=== PATIENT | female | born 1990 | race Caucasian/White ===

== ENCOUNTER 2024-01-03 10:32 | Emergency (ER) | payer BC, SELFPAY ==
[2024-01-03 10:38] VITALS: BP 138/99
--- NOTE | 2024-01-03 11:57 | ED.GENMED ---
History of Present Illness
General
Chief Complaint: Weakness
Source: patient
Exam Limitations: none
Time Seen by Provider: 01/03/24 10:48
Nursing documentation reviewed up to this point in time: agreed with
History of Present Illness
History of Present Illness:
The patient is a 33-year-old female who reports that she has had years of intermittent joint pain, joint swelling, and back pain and has had tests done that are consistent with a diagnosis of Breonna's and lupus. However, she reports that she
does not have a definite autoimmune diagnosis. Additionally, patient reports that she suffers from episodes of hypoglycemia after eating. She reports she has a glucometer and at times her blood sugar is in the 50s. Patient reports that over the
last few weeks her symptoms seem to have gotten worse and now include a feeling of ' brain fog' and dizziness. Patient reports that she feels ' out of it', like something is going on and is not right. She denies fever, cough, shortness of breath,
vomiting, and diarrhea. She describes the dizziness as severe lightheadedness as if she is seeing stars. She reports at times he gets so bad that she is unable to work or take care of her kids. She also reports intermittent headaches and
currently has a headache that is moderate and left-sided. She states both her mother and grandmother have lupus. She denies rash. She reports that her right hand was very swollen yesterday but is now much better.
Past History
Past History
ED Past Medical History: Asthma (Sports Induced), Seizures, Hypothyroidism and Other (Episodes of vasovagal syncope in the past, blood markers of lupus)
ED Past Surgical History: Appendectomy
Social History
Tobacco: Former smoker
Alcohol: Occasional
Drug: None
Personal:
Living: with family
Employment: Employed
Family History
Family History: Other (Noncontributory)
Review of Systems
Review of Systems
Allergies reviewed?: Yes
All Other Systems: ROS reviewed and negative except as documented in HPI and ROS
Constitutional: Reports fatigue
EENT: Reports no symptoms
Respiratory: Reports no symptoms
Cardiac: Reports no symptoms
ABD/GI: Reports no symptoms
: Reports no symptoms
Musculoskeletal: Reports joint pain, joint swelling, muscle stiffness and back pain
Skin: Reports no symptoms
Neurological: Reports dizzy, headache and other (Feelings of brain fog or confusion)
Endocrine: Reports other (Low blood sugar at times)
Hematologic/Lymphatic: Reports no symptoms
Psychiatric: Reports no symptoms
Phy Exam
Physical Exam
Physical Exam:
Physical Exam
General: no apparent distress, not acutely ill
Neck: supple. no meningeal signs. normal psoterior pharynx
Heart: s1/s2 regular rate and rhythm, no murmur. equal radial pulses.
Lungs: no acute respiratory distress. clear bilaterally
Abdomen: normal bowel sounds. not tender. no CVAT
Neuro: alert and oriented. no focal neurological deficits
Skin: no rash
Psychiatric: well kept. interactive and cooperative
Extremities: no edema. no calf tenderness. negative homans. good distal pulses. No current erythema, warmth or swelling of joints of hands or feet. No swelling or warmth or erythema of bilateral knees
Course
Orders/Labs/Results
Orders:
Orders
01/03/24 11:38
C-Reactive Protein Urgent
Comment: ADD ON
Complete Blood Count/With Diff Urgent
Comprehensive Metabolic Panel Urgent
Erythrocyte Sed Rate Urgent
Comment: ADD ON
HCG, Serum Qualitative Screen Urgent
Comment: ADD ON
Lyme Progressive Urgent
Comment: ADD ON
Monotest Urgent
Comment: ADD ON
TSH Urgent
Comment: ADD ON
01/03/24 11:50
Add On- LAB Urgent
Tests Added?: TSH, ESR, CRP
01/03/24 11:51
Add On- LAB Urgent
Tests Added?: lymes progressive
Add On- LAB Urgent
Tests Added?: monotest
01/03/24 11:52
Electrocardiogram (*1) Urgent
Reason for Study: Vertigo / Dizzy
EKG- Treatment ONCE
01/03/24 11:53
CT Head W/o Iv Contrast Urgent
Comment:
Reason For Exam: headache
Orthostatic VS- Treatment ONCE
01/03/24 11:54
Add On- LAB Urgent
Tests Added?: beta-HCG qualitative
Ketorolac [Toradol] 30 mg IV NOW STA
01/03/24 13:30
Butalb/Acetaminophen/Caffeine [Fioricet] 1 tab PO NOW STA
Abnormal Lab Results
01/03/24
11:38
Neutrophils % 75.5 H %
(42.2-75.2)
Lymphocytes % 17.9 L %
(20.5-51.1)
01/03/24 11:38
01/03/24 11:38
Vital Signs
Initial and Last Documented VS:
Initial Vital Signs
Temp Pulse Resp BP Pulse Ox
98.5 F 69 16 138/99 98
01/03/24 10:38 01/03/24 10:38 01/03/24 10:38 01/03/24 10:38 01/03/24 10:38
Last Documented Vital Signs
Temp Pulse Resp BP Pulse Ox
98.5 F 69 16 138/99 98
01/03/24 10:38 01/03/24 10:38 01/03/24 10:38 01/03/24 10:38 01/03/24 10:38
MDM/Problems Addressed
Differential Diagnosis Includes:
Orthostatic dizziness, vertigo, exacerbation of possible autoimmune disease such as lupus, mono, Lyme's
MDM/Problems Addressed:
Patient presents with acute dizziness which she reports is a lightheadedness
Chronic conditions affecting care:
Possible lupus
Acute Exacerbation and/or Progression of Chronic Illness:
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
Acute Exacerbation and/or Progression of Chronic Illness: Other (Hypothyroidism)
*Pulse Oximetry
Patient hypoxic: no
*Windows Software Engineer Interpretation
Rate: normal
Interpretation: normal
Rhythm: sinus
*Critical Care Note
Total Time (30-74mins, 75-104mins- exclusive of procedures): Not Applicable
Data Reviewed
Source: patient and family (Mother who is at the bedside)
Update Note
Update Note:
Patient remains well and comfortable. She is eating and drinking without difficulty. Her orthostatics were negative. Her neurological exam is normal and there is no sign of stroke. CT head shows no sign of intracranial abnormality. Patient
encouraged to follow-up with her primary care doctor and her assembling inspector.
ED Attending Note
-
Portions of this chart may have been created with voice recognition software.� Occasional wrong word or��sound alike� substitutions may have occurred due to the inherent limitations of voice recognition software.
Discharge Plan
Departure
Patient Disposition: Home (Routine Discharge)
Date of Disposition: 01/03/24
Time of Disposition: 13:30
Patient with high blood pressure during this ER visit?: Yes
Condition: Good
Covid-19: Not Applicable
Discharge Problem:
Dizziness, Headache
Instructions: Headache, Adult ED, Dizziness, Adult ED, BLOOD PRESSURE
Prescriptions:
New
fariucecyt-fouvlsxijzqev-[id number] [Fioricet] 50-300-40 mg capsule
1 cap PO Q8H PRN (Reason: Pain) Qty: 8 0RF
No Action
lisinopril-hydrochlorothiazide 1 EACH tablet
1 ea PO DAILY
oxycodone-acetaminophen 5 MG/325 MG tablet
1 tab PO Q4HPRN PRN (Reason: pain) Qty: 10 0RF
oxycodone-acetaminophen 5 MG/325 MG tablet
1 tab PO Q4HPRN PRN (Reason: moderate pain) Qty: 20 0RF
Referrals:
Tati Houser NP [Family Provider] -
Activity Restrictions/Additional Instructions:
Do not take Tylenol within 4 hours of taking the Fioricet because the Fioricet contains Tylenol. Please follow-up with your assembling inspector soon as possible.
Interventions
Interventions:
*Risk Screen - Suicide Last Done: 01/03/24 10:38
*General Assessment Last Done: 01/03/24 12:14
*Neglect/Abuse Screening Last Done: 01/03/24 10:38
ED- Cardiac Assessment Last Done: 01/03/24 12:14
ED- Neurological Assessment Last Done: 01/03/24 12:14
ED- Pulmonary Assessment Last Done: 01/03/24 12:14
Discharge Date and Time
Print Language: TELUGU
[2024-01-03 11:58] LABS: % Basophils 0.4 % (0-2); % Eosinophils 0.5 % (0-6); % Immature Granulocytes 0.1 % (0-0.5); % Lymphocytes 17.9 % (20.5-51.1); % Monocytes 5.6 % (1.7-9.3); % Neutrophils 75.5 % (42.2-75.2); Absolute Lymphocytes 1.3 10^3/uL (1.2-3.4); Absolute Monocytes 0.4 10^3/uL (0.1-0.6); Absolute Neutrophils 5.6 10^3/uL (1.4-6.5); Hemoglobin 13.1 g/dL (12.0-16.0); Mean Corp Hgb Conc. 33.6 g/dL (33.0-37.0); Mean Corpuscular Hgb 30.6 pg (27.0-31.0); Mean Corpuscular Volume 91.1 fL (81.0-99.0); Mean Platelet Volume 9.9 fL (7.4-10.4); Nucleated Red Blood Cells % 0 %; Platelet Count 282 10^3/uL (130-400); Red Blood Cell Count 4.28 10^6/uL (4.20-5.40); Red Cell Dist. Width 11.6 % (11.5-14.5); White Blood Cell Count 7.4 10^3/uL (4.8-10.8)
[2024-01-03] MEDS: TORADOL 30 MG IV (12:00)
[2024-01-03 12:05] VITALS: BP 118/86; BP 129/87; BP 95/78; PULSE 60; PULSE 64; PULSE 68
[2024-01-03 12:05] LABS: ALT (SGPT) 13 U/L (0-35); AST (SGOT) 21 U/L (14-36); Albumin 4.2 g/dl (3.5-5.0); Alkaline Phosphatase 82 U/L (38-126); Blood Urea Nitrogen 9 mg/dl (7-17); Calcium 9.3 mg/dl (8.4-10.2); Carbon Dioxide 23 mmol/L (22-30); Chloride 104 mmol/L (98-107); Glucose 87 mg/dl (70-99); Potassium 4.4 mmol/L (3.5-5.1); Sodium 139 mmol/L (135-145); Total Bilirubin 0.4 mg/dl (0.2-1.3); Total Protein 6.5 g/dl (6.3-8.2); eGFR > 60.00
[2024-01-03 12:25] LABS: Erythrocyte Sed Rate 11 mm/hour (0-20)
[2024-01-03 12:35] LABS: HCG, Serum Qualitative Screen Negative
[2024-01-03 12:38] LABS: C-Reactive Protein < 5.00 mg/L (0.0-10.00)
[2024-01-03 12:48] LABS: Monotest Negative (Negative)
[2024-01-03] MEDS: FIORICET 1 TAB PO (13:40)
[2024-01-03 15:40] LABS: Lyme Antibody Screen, EIA Negative (Negative)
== END 2024-01-03 13:53 | disposition home or self-care (01) ==
LOC: EMR 10:32
PROVIDERS: EMERGENCY PHYSICIAN Emergency Medicine; FAMILY PHYSICIAN Nurse Practitioner Family
DX: R42 Dizziness and giddiness (principal); R51.9 Headache, unspecified; Z87.891 Personal history of nicotine dependence; R03.0 Elevated blood-pressure reading, without diagnosis of hypertension; E03.9 Hypothyroidism, unspecified
CPT/HCPCS: 99285; 96374; 70450; 80053; 84443; 84703; 85025; 85652; 86140; 86308; 86618; 93005